=== PATIENT | male | born 1995 | race Caucasian/White ===

== ENCOUNTER 2021-10-19 10:11 | Emergency (ER) | payer MEDICAID, OTHER ==
[~2021-10-19] VITALS: Ht 172.7 cm; Wt 68.0 kg
[2021-10-19 10:14] VITALS: BP 121/80
[2021-10-19] MEDS ORDERED: KETOROLAC 30MG/ML VIAL IM ONE (10:45)
[2021-10-19] MEDS ORDERED: IBUP-2029 MT (12:22)
== END 2021-10-19 14:19 | disposition home or self-care (01) ==
LOC: ER 10:19
DX: S40.012A Contusion of left shoulder, initial encounter (principal); S16.1XXA Strain of muscle, fascia and tendon at neck level, initial encounter; V43.52XA Car driver injured in collision with other type car in traffic accident, initial encounter; Y93.89 Activity, other specified; Y92.411 Interstate highway as the place of occurrence of the external cause
CPT/HCPCS: 73030; 96372; 99283; J1885